=== PATIENT | male | born 1995 | race Caucasian/White ===

== ENCOUNTER 2018-10-16 08:10 | Emergency (ER) | payer BC ==
[~2018-10-16] VITALS: Ht 172.7 cm; Wt 79.5 kg
[2018-10-16] MEDS ORDERED: ALKA-SELTZER HE1 TEF PO (08:33)
[2018-10-16 09:13] LABS: COLLECTION METHOD CLEAN CATCH
[2018-10-16 09:23] LABS: MUCOUS Present /lpf; PH 7 (5-8); SQUAMOUS EPITHELIAL None Seen /hpf; URINE APPEARANCE Clear; URINE BACTERIA None Seen /hpf; URINE BILIRUBIN Negative (NEGATIVE); URINE BLOOD Negative (NEGATIVE); URINE COLOR Yellow; URINE GLUCOSE Negative (NEGATIVE); URINE KETONE Negative (NEGATIVE); URINE LEUKOCYTE ESTERASE Negative (NEGATIVE); URINE NITRATE Negative (NEGATIVE); URINE PROTEIN(semi-quant) Negative (NEGATIVE); URINE RBC 0-2 /hpf
[2018-10-16 10:24] VITALS: BP 128/91; PULSE 95; TEMP 99.5
== END 2018-10-16 10:21 | disposition home or self-care (01) ==
LOC: COL.ER 08:10
PROVIDERS: Physician Assistant
DX: B34.9 Viral infection, unspecified (principal)

== ENCOUNTER 2020-02-11 18:28 | Emergency (ER) | payer BC ==
[~2020-02-11] VITALS: Ht 172.7 cm; Wt 86.4 kg
[~2020-02-11 18:28] MED LIST: ALKA-SELTZER HE1 TEF PO
[2020-02-11 18:31] VITALS: BP 136/81; TEMP 98.6
[2020-02-11 19:13] VITALS: PULSE 81
== END 2020-02-11 19:14 | disposition home or self-care (01) ==
LOC: COL.ER 18:28
DX: D36.7 Benign neoplasm of other specified sites (principal)